=== PATIENT | male | born 1950 | race Hispanic/Latino ===

== ENCOUNTER 2022-11-20 05:57 | Day surgery (SDC) | payer OTHER ==
[2022-11-16 16:06] LABS: BASOPHILS # (AUTO) 0.03 K/uL (0.00-0.20); BASOPHILS % (AUTO) 0.4 % (0.0-5.0); EOSINOPHILS # (AUTO) 0.19 K/uL (0.00-0.70); EOSINOPHILS % (AUTO) 2.7 % (0.0-8.0); HEMATOCRIT 42.7 % (42-54); IMMATURE GRANULOCYTE ABSOLUTE 0.01 K/uL (0-1); LYMPHOCYTES # (AUTO) 2.7 K/uL (1.0-4.8); LYMPHOCYTES % (AUTO) 38.7 % (21.0-51.0); MEAN CORPUSCULAR HEMOGLOBIN 29.5 pg (27.0-33.0); MEAN CORPUSCULAR HGB CONC 32.8 g/dL (32.0-36.0); MEAN CORPUSCULAR VOLUME 89.9 fL (79-99); MONOCYTES # (AUTO) 0.5 K/uL (0.1-1.0); MONOCYTES % (AUTO) 7.3 % (3.0-13.0); NEUTROPHILS # (AUTO) 3.6 K/uL (1.8-7.7); NEUTROPHILS % (AUTO) 50.8 % (40.0-77.0); PLATELET COUNT (AUTO) 162 K/uL (130-400); RED BLOOD CELL COUNT(AUTO) 4.75 MIL/uL (4.50-6.20); RED CELL DISTRIBUTION WIDTH 12.8 % (11.0-15.5)
[2022-11-16 16:10] VITALS: BP 161/73; PULSE 52; RESP 18
[2022-11-16 16:21] LABS: CREATININE 2.7 mg/dL (0.5-1.5); POTASSIUM 4.3 mmol/L (3.5-5.1)
[2022-11-16 16:24] LABS: INR 1.02 (0.85-1.15); PROTHROMBIN TIME 11.8 SEC (9.6-11.6)
[2022-11-16 16:26] LABS: PARTIAL THROMBOPLASTIN TIME 30.9 SEC (26.3-35.5)
[~2022-11-20] VITALS: Ht 170.2 cm; Wt 63.0 kg
[~2022-11-20 05:57] MED LIST: AMLO-258 PO; CHOL200013 PO; CLON0.1T PO; CLOP75TA32 PO; DAPA10TA PO; FISH1CAP63 PO; ISOS30TA92 PO; ISOS60TA77 PO; LEVO88TA7 PO; METO-408 PO; NITR0.4T50 SL; ROSU20TA73 PO; SEMA1PEN3 SQ; TORS10TA18 PO
[2022-11-20] MEDS ORDERED: 0.9%NACL 1000ML 1,000 ML IV ONE (07:34)
[2022-11-20 08:00] VITALS: BP 121/63; PULSE 60; RESP 18
[2022-11-20] MEDS ORDERED: LIDOCAINE HCL 400MG/20ML VIAL ONE (08:06)
[2022-11-20] MEDS ORDERED: SODIUM BICARB 50MEQ 50ML VIAL 50 ML ONE (08:06)
[2022-11-20] MEDS ORDERED: MIDAZOLAM HCL 1 MG/ML 2ML VIAL ONE (08:32)
[2022-11-20] MEDS ORDERED: FENTANYL CITRATE PF 50 MCG/1 ML 2ML VIAL ONE (08:32)
[2022-11-20 09:10] VITALS: BP 114/58; PULSE 62; RESP 14
[2022-11-20 09:25] VITALS: BP 119/65; PULSE 59; RESP 15
[2022-11-20 09:40] VITALS: BP 124/66; PULSE 62; RESP 15
== END 2022-11-20 10:30 | disposition home or self-care (01) ==
LOC: DAH 05:57
PROVIDERS: ATTEND Internal Medicine Cardiovascular Disease
DX: G45.8 Other transient cerebral ischemic attacks and related syndromes (principal); I49.5 Sick sinus syndrome; E11.51 Type 2 diabetes mellitus with diabetic peripheral angiopathy without gangrene; E11.42 Type 2 diabetes mellitus with diabetic polyneuropathy; E11.22 Type 2 diabetes mellitus with diabetic chronic kidney disease; I13.0 Hypertensive heart and chronic kidney disease with heart failure and stage 1 through stage 4 chronic kidney disease, or unspecified chronic kidney disease; N18.4 Chronic kidney disease, stage 4 (severe); I50.32 Chronic diastolic (congestive) heart failure; E78.2 Mixed hyperlipidemia; E03.9 Hypothyroidism, unspecified; Z95.5 Presence of coronary angioplasty implant and graft; Z98.890 Other specified postprocedural states; Z82.49 Family history of ischemic heart disease and other diseases of the circulatory system; Z80.3 Family history of malignant neoplasm of breast
CPT/HCPCS: 80048; 85025; 85610; 85730; 36415; 93005; 33285; 82948; 71045; A4649; C1764; J3490 ×2; J7030; A4215; A4222; A4221; A4663; A4216; A4606; A4223 ×3; J2250; J3010